=== PATIENT | female | born 1985 | race Caucasian/White ===

== ENCOUNTER 2023-04-01 17:49 | Outpatient (REF) | payer MEDICAID, SELFPAY ==
[2023-04-01 22:07] LABS: CT PCR NOT DETECTED (Not Detect.); NG PCR NOT DETECTED (Not Detect.)
[2023-04-02 15:39] LABS: BV Int Neg Control Negative (Negative); BV Int Pos Control Positive (Positive)
[2023-04-05 05:08] LABS: HPV 16 RNA NOT DETECTED (NOT DETECTED); HPV mRNA E6/E7 rflx Detected (Not Detected)
== END 2023-04-01 17:50 | disposition home or self-care (01) ==
LOC: HO.HHCLNP 17:49
PROVIDERS: Visit Provider Family Medicine
DX: Z01.419 Encounter for gynecological examination (general) (routine) without abnormal findings (principal)
CPT/HCPCS: 0353U; 87480; 87510; 87624; 87625; 87660; 88142

== ENCOUNTER 2023-05-05 11:46 | Outpatient (REF) | payer MEDICAID, SELFPAY ==
[2023-05-05 14:30] LABS: Syphilis Screen Reactive (Nonreactive)
[2023-05-05 16:32] LABS: CT PCR NOT DETECTED (Not Detect.); NG PCR NOT DETECTED (Not Detect.)
[2023-05-06 09:27] LABS: HBS Num1 252.41 mIU/mL (0-7.99); HBc Num1 0.08 S/CO (0.00-0.79); HBsAGNum1 0.34 S/CO (0.00-0.99); HIV AB/AG Nonreactive (Nonreactive); HIV Num 1 0.04 S/CO (0.00-0.99); Hepatitis B Core Antibody Nonreactive (Nonreactive); Hepatitis B Surface Antigen Negative (Negative); ~HepC Num1 0.05 S/CO (0.00-0.79); ~Hepatitis B Surface Antibody REACTIVE (Nonreactive); ~Hepatitis C Antibody Nonreactive (Nonreactive)
[2023-05-08 15:27] LABS: RPR Quantitative Reactive 1:8 (Nonreactive); T.Pallidum Particle Agg Test Reactive (Nonreactive)
== END 2023-05-05 11:47 | disposition home or self-care (01) ==
LOC: HO.HHCL 11:46
PROVIDERS: Visit Provider Family Medicine
DX: Z86.19 Personal history of other infectious and parasitic diseases (principal)
CPT/HCPCS: 0353U; 86592; 86704; 86706; 86780; 86803; 87340; 87389

== ENCOUNTER 2024-12-20 11:11 | Outpatient (REF) | payer MEDICAID, SELFPAY ==
--- OUTSIDE RECORDS SUMMARY | 2024-12-20 12:50 | XMS_ITS | Encounter Summary ---
Author Organization [employer] Address [address] [place] [address] [address] [place] [address] Care Team Providers Care Fire Control Technician B Name Role Phone Tory Blunt MD Primary Care Provider [phone] Reason for Visit * Reason Onset Date Comments Appointment Request 10/21/2024 Encounter Details Date Type Department Care Team ([facility] st Contact Info) Description 10/21/2024 Telephone [facility] [address] [place], [place] [id number] Tory Blunt MD [address] [place], [place] [phone] Appointment Request Social History Tobacco Use Types Packs/Day Years Used Date Smoking Tobacco: Former Passive Smoke Exposure: Past Smokeless Tobacco: Never Alcohol Use Standard Drinks/Week Comments Never 0 (1 standard drink = 0.6 oz pur e alcohol) Depression Answer Date Recorded Patient Health Questionnaire-9 Score 0 01/12/2024 Patient Health Questionnaire-9 Score 0 01/12/2024 Last PHQ-9: Questionnaire Data Not on file 0 01/12/2024 Housing Stability Answer Date Recorded What is your housing situation today? I have [place]re de [place] 01/12/[address] you li ve. Do you have problems with any of the following? None of the above 01/12/2024 Food Insecurity Answer Date Recorded Within the past 12 months, y ou worried that your food would run out before you got money to buy more: Never True 01/12/2024 Within the past 12 months,th e food you bought just didn't last and you didn't have enough money to get more: Never True 07/2023 Transportation Answer Date Recorded In the past 12 months, has l ack of transportation kept you from medical appts, meetings, work or from getting things needed for daily living? No 01/12/2024 Utilities Answer Date Recorded In the past 12 months, has t he electric, gas, oil or water company threatened to shut off services in your home? No 01/12/2024 Depression Answer Date Recorded Patient Health Questionnaire-2 Score 0 01/12/2024 Internet Access Answer Date Recorded Internet Access Q1 No 03/15/2024 Internet Access Q2 Internet/Wi-Fi access is not available where I live 03/15/2024 Comments No Sex and Gender Information Value Date Recorded Sex Assigned at Female 05/13/2022 10:20 AM EDT Legal Sex Female 10:20 AM EDT Gender Identity Female 05/13/2022 10:20 AM EDT Sexual Orientation Straight 05/13/2022 10 :20 AM EDT documented as of this encounter Miscellaneous Notes * Telephone Encounter - Laquita Benítez - 10/21/2024 10:15 AM EDT Tc from pt requesting to r/s PAP appointment. Pt expressed she would like to discuss getting a hysterectomy and schedule PE that is due in December. Contact pt at [phone] documented in this encounter Plan of Treatment Not on file documented as of this encounter Visit Diagnoses Not on filedocumented in this encounter Additional Health Concerns Assessment Noted Time PHQ-9 Depression Total Score: 0 01/12/20 24 10:54 AM EDT documented as of this encounter Care Teams Fire Control Technician B Relationship Specialty Start Date End Date Tory Blunt MD [address] [place] [id number] PCP - General Family Medicine 04/23/22 documented as of this encounter
[2024-12-20 13:08] LABS: MANUAL DIFF FLAG NO
[2024-12-20 13:10] LABS: Basophils Percent Auto 0.6 % (0-2); Eosinophils Absolute Auto 0.4 X10*3/uL (0.0-0.4); Eosinophils Percent Auto 6.7 % (0-4); Hemoglobin 11.8 g/dl (12.0-16.0); Imm Gran Abs Auto 0.03 X10*3/uL (0.00-0.03); Imm Gran Pct Auto 0.5 % (0.0-0.4); Lymphocytes Absolute Auto 2.1 X10*3/uL (1.2-4.9); Lymphocytes Percent Auto 32.7 % (20-40); Mean Corpuscular HGB Conc 32.8 g/dl (31.0-35.0); Mean Corpuscular Hemoglobin 27.1 pg (27.0-33.0); Mean Corpuscular Volume 82.6 fL (80.0-98.0); Mean Platelet Volume 11.6 fL (9.4-12.3); Monocytes Absolute Auto 0.4 X10*3/uL (0.1-1.2); Monocytes Percent Auto 6.2 % (2-11); Neutrophils Absolute Auto 3.3 x10*3/uL (2.0-8.3); Neutrophils Percent Auto 53.3 % (45-73); Platelet Count 222 X10*3/uL (160-400); Red Blood Count 4.36 X10*6/uL (4.20-5.50); White Blood Count 6.3 X10*3/uL (4.8-10.8)
[2024-12-20 14:00] LABS: HBsAGNum1 0.26 S/CO (0.00-0.99); HIV AB/AG Nonreactive (Nonreactive); HIV Num 1 0.06 S/CO (0.00-0.99); Hepatitis B Surface Antigen Negative (Negative); ~HepC Num1 0.12 S/CO (0.00-0.79); ~Hepatitis C Antibody Nonreactive (Nonreactive)
[2024-12-20 14:02] LABS: TSH reflex Free T4 0.63 uIU/mL (0.32-4.0)
[2024-12-23 05:17] LABS: C. trachomatis RNA TMA NOT DETECTED (NOT DETECTED); N. gonorrhoeae RNA TMA NOT DETECTED (NOT DETECTED); Trichomonas (NAAT) NOT DETECTED (NOT DETECTED)
[2024-12-24 11:17] LABS: HPV Genotype 16 Negative (Negative); HPV Genotype 18 Negative (Negative); HPV High Risk Negative (Negative)
== END 2024-12-20 11:12 | disposition home or self-care (01) ==
LOC: HO.HHCL 11:11
PROVIDERS: Visit Provider Family Medicine
DX: Z01.419 Encounter for gynecological examination (general) (routine) without abnormal findings (principal); Z11.3 Encounter for screening for infections with a predominantly sexual mode of transmission; N93.9 Abnormal uterine and vaginal bleeding, unspecified; Z86.19 Personal history of other infectious and parasitic diseases
CPT/HCPCS: 36415; 84443; 85025; 86803; 87340; 87389; 87491; 87591; 87626; 87661; 88175

== ENCOUNTER 2025-05-09 11:55 | Outpatient (REF) | payer MEDICAID, SELFPAY ==
[2025-05-09 13:25] LABS: MANUAL DIFF FLAG NO
[2025-05-09 13:35] LABS: Hematocrit 39.2 % (37.0-47.0); Hemoglobin 12.5 g/dl (12.0-16.0); Imm Gran Abs Auto 0.04 X10*3/uL (0.00-0.03); Imm Gran Pct Auto 0.6 % (0.0-0.4); Lymphocytes Absolute Auto 2.3 X10*3/uL (1.2-4.9); Mean Corpuscular HGB Conc 31.9 g/dl (31.0-35.0); Mean Corpuscular Hemoglobin 27.2 pg (27.0-33.0); Mean Corpuscular Volume 85.4 fL (80.0-98.0); NRBC Abs Auto 0.000 X10*3/uL (0.0-0.012); NRBC Pct Auto 0.0 /100WBC (0.0-0.2); Platelet Count 262 X10*3/uL (160-400); Red Blood Count 4.59 X10*6/uL (4.20-5.50); Reticulocytes Absolute 0.077 X10*6/uL (0.026-0.095); White Blood Count 7.1 X10*3/uL (4.8-10.8)
[2025-05-09 14:06] LABS: Alanine Aminotransferase 10 U/L (0-31); Albumin Level 4.0 g/dL (3.5-5.0); Alkaline Phosphatase 54 U/L (39-117); Anion Gap 9 (12-20); Aspartate Amino Transferase 16 U/L (5-31); Blood Urea Nitrogen 15 mg/dL (9-16); Calcium 8.9 mg/dL (8.4-10.2); Carbon Dioxide 27 mmol/L (22-29); Chloride 108 mmol/L (96-108); Estimated Glomerular Filt Rate > 60; Iron 44 mcg/dL (30-160); Percent Iron Saturation 12 % (15-50); Potassium 4.4 mmol/L (3.3-5.1); Sodium 140 mmol/L (135-145); Total Iron Binding Capacity 364 mcg/dL (228-428); Total Protein 6.9 g/dL (6.5-8.0); Unsaturated Iron Binding 320 ug/dL
[2025-05-09 14:27] LABS: Ferritin 7 ng/mL (10-250)
[2025-05-09 15:39] LABS: Folate 8.1 ng/mL (> or = 4.0); Vitamin B12 315 pg/mL (200-900)
[2025-05-10 04:27] LABS: Bacterial Vaginosis PCR POSITIVE (Negative); Candida Group PCR NOT DETECTED (Not Detect); Candida glab krusei PCR NOT DETECTED (Not Detect); Trichomonas vaginalis PCR NOT DETECTED (Not Detect)
[2025-05-10 04:59] LABS: CT PCR NOT DETECTED (Not Detect.); NG PCR NOT DETECTED (Not Detect.)
[2025-05-13 13:49] LABS: Rapid Plasma Reagin Ab Titer 1:2
== END 2025-05-09 11:56 | disposition home or self-care (01) ==
LOC: HO.HHCL 11:55
PROVIDERS: PCP Family Medicine; Visit Provider Family Medicine
DX: N89.8 Other specified noninflammatory disorders of vagina (principal); D64.9 Anemia, unspecified; L65.9 Nonscarring hair loss, unspecified; Z20.2 Contact with and (suspected) exposure to infections with a predominantly sexual mode of transmission; Z86.19 Personal history of other infectious and parasitic diseases
CPT/HCPCS: 36415; 80053; 81515; 82607; 82728; 82746; 83540; 84443; 85025; 85045; 86592; 86593; 87491; 87591